=== PATIENT | female | born 1970 | race Caucasian/White ===

== ENCOUNTER 2017-01-08 13:27 | Outpatient (CLI) | payer OTHER ==
[~2017-01-08] VITALS: Ht 172.7 cm; Wt 120.2 kg
[2017-01-08] MEDS ORDERED: DEXAMETHASONE PF 10 MG/ML (DECADRON) VIAL ONE (13:31)
[2017-01-08 13:47] VITALS: BP 126/85
[2017-01-08 14:25] VITALS: BP 129/85
--- NOTE | 2017-01-08 14:58 | Pain Medicine-Procedure ---
Procedure Pre-Op/Post-Op Diagnosis Diagnosis: disc disorder with radiculopathy, cervical Indications for Operation Neck pain Attending Surgeon Leydi Procedure Date of Service: Jan 08, 2017 Procedure: Cervical Epidural Steroid Injection at the C7-T1 Level under Fluoroscopic Guidance Procedure: Pt was identified in the holding area. After risks, benefits, and alternatives were discussed with the patient, informed consent was obtained. An IV was placed by nursing staff prior to procedure. Patient was brought to the fluoroscopy suite and placed prone on the operating table. A time out was performed. Vital signs were monitored throughout the procedure. The patients neck was prepped and draped in the usual sterile fashion. The patients skin was anesthetized using 1% Lidocaine. A 18 gauge tuohy needle was inserted and advanced to the C7-T1 epidural space under fluoroscopic guidance using the loss of resistance technique. The needle position was confirmed in the AP and lateral view. After negative aspiration 2 ml of non-ionic contrast was injected under live fluoroscopy which showed good spread of the contrast in the epidural space at the appropriate level, there was no intravascular or subarachnoid spread. Again, after negative aspiration, 3 ml of preservative free normal saline and 10 mg of dexamethasone was injected. The needle was removed and the patient was transferred to the recovery area in stable condition. And after a brief period of observation was discharged to home in stable condition with no new neurologic deficits. Complications None CONSUELO GONZALES MD Jan 08, 2017 2:58 pm
== END 2017-01-08 14:30 | disposition home or self-care (01) ==
LOC: CARD 13:27
PROVIDERS: ATTEND Pain Medicine Pain Medicine
DX: M50.13 Cervical disc disorder with radiculopathy, cervicothoracic region (principal); Z79.899 Other long term (current) drug therapy
CPT/HCPCS: 62321